=== PATIENT | female | born 1945 | race African-American/Black ===

== ENCOUNTER 2017-11-11 13:29 | Emergency (ER) | payer OTHER ==
[~2017-11-11] VITALS: Ht 154.9 cm; Wt 90.7 kg
--- NOTE | ~2017-11-11 | EKG ---
[place] [address] [address] [facility] [facility] [place] [address] ELECTROCARDIOGRAM REPORT Name: KURT NAIR Room #: DEP Liliana#: [id number] Admission: 11/11/17 Attend Phys: Discharge: 11/11/17 Date of : 45 Report #: [id number] THIS REPORT FOR: //name// [facility] ED Test Date: 2017-11-11 Test Time: 13:37:16 Pat Name: KURT SHINE Department: Room: Gender: F [employer]: [facility] : 1945 Requested By: Nohemi Trinidad Order Number: [id number] MD: Kishor Blandon Measurements Intervals [place] Rate: 86 P: 68 AL: 150 QRS: 13 QRSD: 87 T: 23 QT: 350 QTc: 419 Interpretive Statements Sinus rhythm Abnormal R-wave progression, early transition No previous ECG available for comparison Electronically Signed On 11-11-2017 22:28:02 CDT by Kishor Blandon [email or web address] <ELECTRONICALLY SIGNED> By: Kishor Blandon MD 11/11/17 [id number] MD BRENT Dubois
[~2017-11-11 13:29] MED LIST: CYCLOBENZAPRINE5 MG PO
[2017-11-11 13:57] LABS: BASOPHILS 0.6 % (0.0-2.0); EOSINOPHILS 1.4 % (0.0-3.0); HEMATOCRIT 34.6 % (37.0-47.0); HEMOGLOBIN 11.4 gm/dL (12.0-15.0); LYMPHOCYTES 17.5 % (24.0-44.0); MCH 31.3 pg (26.0-34.0); MCV 94.7 fL (80.0-100.0); MONOCYTES 6.2 % (1.0-8.0); PLATELET COUNT 258 thou/uL (150-400); POLYS 74.3 % (36.0-66.0); RBC 3.65 mil/uL (4.20-5.00); RDW 14.7 % (10.5-14.5); WBC 9.5 thou/uL (4.0-11.0)
[2017-11-11 14:05] LABS: ANION GAP 9 mmol/L (7-16); BUN 28 mg/dL (7-18); CALCIUM 10.1 mg/dL (8.5-10.1); CHLORIDE 108 mmol/L (98-107); CO2 26 mmol/L (21-32); CREATININE 1.4 mg/dL (0.6-1.0); GLUCOSE 89 mg/dL (74-106); POTASSIUM 4.1 mmol/L (3.5-5.1); SODIUM 143 mmol/L (136-145)
[2017-11-11 14:14] LABS: ALBUMIN 3.8 g/dL (3.4-5.0); SGOT 26 U/L (15-37); SGPT 25 U/L (30-65); TOTAL BILIRUBIN 0.3 mg/dL (<0.1-1.0); TOTAL PROTEIN 7.7 g/dL (6.4-8.2); TROPONIN-I < 0.04 ng/mL (<0.06)
[2017-11-11] MEDS ORDERED: PREDNISONE 20 M20 MG PO (14:59)
[2017-11-11] MEDS ORDERED: NORFLEX100 MG PO (15:19)
[2017-11-11 15:27] VITALS: BP 143/71
== END 2017-11-11 15:34 | disposition home or self-care (01) ==
LOC: ER 13:29
PROVIDERS: Physician Assistant
DX: R07.89 Other chest pain (principal); M54.32 Sciatica, left side; I10 Essential (primary) hypertension; E78.00 Pure hypercholesterolemia, unspecified